=== PATIENT | female | born 1960 | race Caucasian/White ===

== ENCOUNTER 2016-11-18 06:54 | Day surgery (SDC) | payer BC ==
[2016-11-17 08:49] VITALS: BMI 46.9
[~2016-11-18 06:54] MED LIST: LACTATED RINGERS 1,000 ML IV SCH
[2016-11-18 07:18] VITALS: RESP 16; TEMP 96.7
[2016-11-18 07:21] LABS: Glucose,Whole Blood 167 mg/dL (75-99)
[2016-11-18] MEDS ORDERED: LIDOCAINE 1% 20 ML VIAL (10MG/ML) FOR IV START INTRADERMA ONE (07:23)
[2016-11-18] MEDS ORDERED: ONDANSETRON 4 MG/2 ML VIAL IVP ONE (07:24)
[2016-11-18] MEDS ORDERED: PROPOFOL 10 MG/ML 20 ML VIAL IV ONE (07:48)
--- NOTE | 2016-11-18 08:04 | P.PCN ---
Date of Procedure: 11/18/16 Preoperative Diagnosis: Postoperative Diagnosis: Procedure(s) Performed: BRIEF HISTORY: Patient is a 56-year-old pleasant female, scheduled for an elective colonoscopy as a part of screening for colonic neoplasia. She has family history of colon cancer diagnosed in her grandmother as well as her maternal aunt and early 50s. PROCEDURE PERFORMED: Colonoscopy with biopsy. PREOPERATIVE DIAGNOSIS: Screening for colon cancer/family history of colon cancer. IV sedation per Anesthesia. PROCEDURE: After informed consent was obtained, the patient, was brought into the endoscopy unit. IV sedation was administered by Anesthesia under continuous monitoring. Digital rectal examination was normal. Initially the Olympus CF- 160 flexible video colonoscope was then inserted in the rectum, gradually advanced into the cecum without any difficulty. Careful examination was performed as the scope was gradually being withdrawn. Ileocecal valve and the appendiceal orifice were visualized and appeared normal. Prep was excellent. Mucosa of the cecum, ascending colon, transverse colon, descending colon, sigmoid colon, and rectum appeared normal. There was a 5 mm polyp noted in the proximal rectum that was removed by biopsy. Retroflexion was performed in the rectum and no lesions were seen. The patient tolerated the procedure well. IMPRESSION: 5 mm proximal rectal polyp status post removal by biopsy. Rest of the colon appeared normal. RECOMMENDATIONS: Findings of this examination were discussed with the patient as well as a family. She was advised to follow with the biopsy results. If the biopsy shows a tubular adenoma and because of the family history of colon cancer she can have a repeat colonoscopy in 5 years. Implants: Indications for Procedure: Operative Findings: Description of Procedure:
[2016-11-18 08:36] VITALS: BP 128/79; PULSE 71
== END 2016-11-18 08:52 | disposition home or self-care (01) ==
LOC: ORWHC2ENDO 06:54
PROVIDERS: ATTEND Internal Medicine Gastroenterology
DX: Z12.11 Encounter for screening for malignant neoplasm of colon (principal); K62.1 Rectal polyp; Z80.0 Family history of malignant neoplasm of digestive organs; I10 Essential (primary) hypertension; J44.9 Chronic obstructive pulmonary disease, unspecified; E11.9 Type 2 diabetes mellitus without complications; Z79.84 Long term (current) use of oral hypoglycemic drugs; Z79.899 Other long term (current) drug therapy; Z88.1 Allergy status to other antibiotic agents; Z88.5 Allergy status to narcotic agent; Z88.8 Allergy status to other drugs, medicaments and biological substances
CPT/HCPCS: 88305; 45380; J2405; J2704

== ENCOUNTER → 2017-08-02 | Outpatient (CLI) | payer BC ==
--- NOTE | 2017-08-03 14:38 | MM ---
Reason for exam: screening (asymptomatic). Last mammogram was performed 1 year and 9 months ago. History: Patient is postmenopausal and is nulliparous. Family history of breast cancer in maternal aunt at age 60 and breast cancer in maternal cousin at age 50. Took estrogen for 6 months beginning at age 42. Physical Findings: A clinical breast exam by your physician is recommended on an annual basis and results should be correlated with mammographic findings. MG 3D Screening Mammo W/Cad Bilateral CC and MLO view(s) were taken. Prior study comparison: October 26, 2015, bilateral MG diagnostic mammo w CAD SEDA. April 22, 2015, bilateral MG work up mamm w CAD BILAT. There are scattered fibroglandular densities. Calcifications in left breast mole. No significant changes when compared with prior studies. ASSESSMENT: Benign, BI-RAD 2 RECOMMENDATION: Routine screening mammogram of both breasts in 1 year.
== END | disposition home or self-care (01) ==
LOC: RADMAMWWP 14:31
PROVIDERS: ATTEND Internal Medicine
DX: Z12.31 Encounter for screening mammogram for malignant neoplasm of breast (principal)
CPT/HCPCS: 77063; 77067

== ENCOUNTER → 2018-04-20 | Outpatient (CLI) | payer BC ==
--- NOTE | 2018-04-20 15:32 | XR ---
EXAMINATION TYPE: XR KUB DATE OF EXAM: 04/20/2018 HISTORY: Pain Comparison: 12/10/2015 Single KUB is submitted for interpretation. Findings: Right renal calculi: None Visualized. Right ureteral calculi: None Visualized. Left renal calculi: None Visualized. Left ureteral calculi: There is a 4.6 mm calculus overlying the margin of the left hemisacrum at its midportion. 2 mm calculus in the region of the left UVJ may reflect phlebolith versus distal uretera l calculus. Pelvic calcifications: Left hemipelvic phlebolith noted. Bowel gas pattern is unremarkable. No free air. No mass effects. IMPRESSION: 1. There is a 4.6 mm calculus overlying the margin of the left hemisacrum at its midportion. 2 mm blanche culus in the region of the left UVJ may reflect phlebolith versus distal ureteral calculus.
--- NOTE | 2018-04-22 07:31 | US ---
EXAMINATION TYPE: US kidneys/renal and bladder DATE OF EXAM: 04/20/2018 COMPARISON: CT & US CLINICAL HISTORY: N20.0 Kidney stone. Pt states h/o kidney stone on left side EXAM MEASUREMENTS: Right Kidney: 12.3 x 5.6 x 5.7 cm Left Kidney: 12.0 x 6.5 x 6.1 cm Right Kidney: Appeared wnl Left Kidney: Mild hydro Bladder: wnl Bilateral Jets seen: Only right jet visualized There is no evidence for hydronephrosis at this point in time. No nephrolithiasis is seen. No jovany s are identified. The urinary bladder is anechoic. Bilateral ureteral jets are seen. IMPRESSION: Mild left-sided hydronephrosis noted.
== END | disposition home or self-care (01) ==
LOC: RADUSWWP 14:13
PROVIDERS: ATTEND Urology
DX: N13.2 Hydronephrosis with renal and ureteral calculous obstruction (principal)
CPT/HCPCS: 74018; 76770

== ENCOUNTER → 2018-04-26 | Outpatient (CLI) | payer BC ==
--- NOTE | 2018-04-26 14:00 | XR ---
Abdomen HISTORY: Kidney stones, ureteral stone Frontal view the abdomen submitted on 3 images Correlation to prior exam 04/20/2018 There is a calcification in the left hemipelvis which may have migrated measures 5 to 6 mm to the lev el of the region of the ureterovesical orifice. Surgical clips present right upper quadrant. Lung bas es are clear. IMPRESSION: Interval migration of left ureteral calculus is suspected.
== END | disposition home or self-care (01) ==
LOC: RADXRMAIN 10:56
PROVIDERS: ATTEND Urology
DX: N20.1 Calculus of ureter (principal); Z88.1 Allergy status to other antibiotic agents; Z88.2 Allergy status to sulfonamides; Z88.5 Allergy status to narcotic agent; Z88.8 Allergy status to other drugs, medicaments and biological substances
CPT/HCPCS: 74018

== ENCOUNTER → 2019-11-21 | Outpatient (CLI) | payer OTHER ==
--- NOTE | 2019-11-22 09:41 | MM ---
Reason for exam: screening (asymptomatic). Last mammogram was performed 2 years and 4 months ago. History: Patient is postmenopausal and is nulliparous. Family history of breast cancer in maternal aunt at age 60 and breast cancer in maternal cousin at age 50. Took estrogen for 6 months beginning at age 42. Physical Findings: A clinical breast exam by your physician is recommended on an annual basis and results should be correlated with mammographic findings. MG 3D Screening Mammo W/Cad Bilateral CC and MLO view(s) were taken. XCCL view(s) were taken of the right breast. Prior study comparison: August 02, 2017, bilateral MG 3d screening mammo w/cad. October 26, 2015, bilateral MG diagnostic mammo w CAD SEDA. There are scattered fibroglandular densities. No significant changes when compared with prior studies. ASSESSMENT: Negative, BI-RAD 1 RECOMMENDATION: Routine screening mammogram of both breasts in 1 year.
== END | disposition home or self-care (01) ==
LOC: RADMAMWWP 15:07
PROVIDERS: ATTEND Internal Medicine
DX: Z12.31 Encounter for screening mammogram for malignant neoplasm of breast (principal)
CPT/HCPCS: 77063; 77067

== ENCOUNTER → 2020-12-08 | Outpatient (CLI) | payer OTHER ==
--- NOTE | 2020-12-09 11:06 | MM ---
Reason for exam: screening (asymptomatic). Last mammogram was performed 1 year and 1 month ago. History: Patient is postmenopausal and is nulliparous. Family history of breast cancer in maternal aunt at age 60 and breast cancer in maternal cousin at age 50. Took estrogen for 6 months beginning at age 42. Physical Findings: A clinical breast exam by your physician is recommended on an annual basis and results should be correlated with mammographic findings. MG 3D Screening Mammo W/Cad Bilateral CC and MLO view(s) were taken. Prior study comparison: November 21, 2019, bilateral MG 3d screening mammo w/cad. August 02, 2017, bilateral MG 3d screening mammo w/cad. The breast tissue is heterogeneously dense. This may lower the sensitivity of mammography. Stable benign calcifications. There is no discrete abnormality. No significant changes when compared with prior studies. ASSESSMENT: Benign, BI-RAD 2 RECOMMENDATION: Routine screening mammogram of both breasts in 1 year.
== END | disposition home or self-care (01) ==
LOC: RADMAMWWP 16:28
PROVIDERS: ATTEND Family Medicine
DX: Z12.31 Encounter for screening mammogram for malignant neoplasm of breast (principal); Z78.0 Asymptomatic menopausal state; Z80.3 Family history of malignant neoplasm of breast
CPT/HCPCS: 77063; 77067